=== PATIENT | male | born 1990 | race Hispanic/Latino ===

== ENCOUNTER 2024-08-25 14:51 | Emergency (ER) | payer OTHER, SELFPAY ==
--- NOTE | ~2024-08-25 | CT_ITS ---
EXAMINATION: CT cervical spine wo con DATE: 08/25/2024 16:18 INDICATION: neck pain TECHNIQUE: Computed tomography (CT) of the cervical spine was performed without intravenous contrast. Automated exposure control and iterative reconstruction technique were employed. The dose-length pro duct was 450.17 mGy-cm. COMPARISON: None. FINDINGS: Vertebral Body Alignment: Intact. Craniocervical and atlantoaxial alignment: Mild degenerative change. Alignment intact. Osseous structures/fracture: No evidence of a lytic or blastic process in the visualized spine. No e vidence of acute fracture. Cervical soft tissues: The paraspinal soft tissues planes are maintained. Mild bilateral apical pleur al scarring. Multiple sub-6 mm right pulmonary nodules. Degenerative changes: Degenerative changes, without severe neural foraminal or central canal narrowin g. IMPRESSION: No acute fracture or traumatic malalignment in the cervical spine. Multiple sub-6 mm right pulmonary nodules, probably representing benign granulomatous disease and req uiring no additional evaluation unless the patient is at high risk, in which case consider an optiona l low-dose noncontrast CT of the chest in one year. Reviewed, dictated and finalized at location K. IMPRESSION: No acute fracture or traumatic malalignment in the cervical spine. Multiple sub-6 mm right pulmonary nodules, probably representing benign granulo matous disease and requiring no additional evaluation unless the patient is at high risk, in which case consider an optional low-dose noncontrast CT of the ch est in one year.
--- NOTE | ~2024-08-25 | CT_ITS ---
EXAMINATION: CT brain wo con DATE: 08/25/2024 16:18 INDICATION: headache . TECHNIQUE: Computed tomography (CT) of the head was performed without intravenous contrast. The mA wa s adjusted according to patient size. Iterative reconstruction technique was employed. The dose-lengt h product was 681.00 mGy-cm. COMPARISON: None. FINDINGS: No acute intracranial hemorrhage or extra-axial fluid collection. No hydrocephalus, mass, or herniation. No acute ischemic infarct. Unremarkable dural venous sinus attenuation. No acute osseous abnormality. The aerated spaces are clear. IMPRESSION: No acute intracranial process. Reviewed, dictated and finalized at location K.
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
[2024-08-25 15:24] VITALS: BP 141/91; PULSE 70; RESP 16; TEMP 36.6; O2SAT 100
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
--- NOTE | 2024-08-25 16:44 | PC.NURSE ---
C-collar removed by Dr. De Guzman
[2024-08-25 17:27] VITALS: BP 129/89; PULSE 77; RESP 16; TEMP 36.6; O2SAT 97
== END 2024-08-25 17:28 | disposition home or self-care (01) ==
LOC: ANHED 17:13
PROVIDERS: Emergency Provider Emergency Medicine
DX: S13.4XXA Sprain of ligaments of cervical spine, initial encounter (principal); S20.219A Contusion of unspecified front wall of thorax, initial encounter; V43.52XA Car driver injured in collision with other type car in traffic accident, initial encounter
CPT/HCPCS: 70450; 71046; 72125; 99284